=== PATIENT | female | born 1970 | race Hispanic/Latino ===

== ENCOUNTER 2022-12-06 20:49 | Observation (INO) | payer SELFPAY ==
[2022-12-06 21:21] LABS: #Basophils 0.1 thou/uL (0.0-0.2); #Eosinphils 0.2 thou/uL (0.0-0.7); #Lymphocytes 3.2 thou/uL (1.20-3.40); #Monocytes 0.5 thou/uL (0.11-0.59); #Neutrophils 3.5 thou/uL (1.40-6.50); %Basophils 0.8 % (0.0-1.0); %Eosinophils 2.3 % (0.0-10.0); %Lymphocytes 43.4 % (21.0-51.0); %Monocytes 6.1 % (0.0-10.0); %Neutrophils 47.4 % (42.0-75.0); Hemoglobin 10.8 g/dL (12.0-16.0); Mean Corpuscular Volume 84.9 fl (78.0-98.0); Mean Platelet Volume 8.6 fL (7.4-10.4); Platelet Count 303 10x3/uL (130-400); Red Blood Cell (RBC) Count 3.85 mill/uL (4.20-5.40); White Blood Cell (WBC) Count 7.5 10x3/uL (4.8-10.8)
[2022-12-06 21:41] LABS: ALT (SGPT) 10 U/L (8-55); AST (SGOT) 16 U/L (5-34); Albumin 4.4 g/dL (3.5-5.0); Alkaline Phosphatase 126 U/L (40-110); Anion Gap 15 mmol/L (10-20); BUN (Urea Nitrogen) 19 mg/dL (9.8-20.1); Bilirubin, Total 0.3 mg/dL (0.2-1.2); Calc. Creatinine Clearance 0 mL/min (70-130); Calcium 9.3 mg/dL (7.8-10.44); Carbon Dioxide 25 mmol/L (22-29); Chloride 101 mmol/L (98-107); Estimated GFR 56; Globulin 3.8 g/dL (2.4-3.5); Glucose 263 mg/dL (70-105); Potassium 3.8 mmol/L (3.5-5.1); Protein, Total 8.2 g/dL (6.0-8.3); Sodium 137 mmol/L (136-145)
[2022-12-06] MEDS ORDERED: Acetaminophen 500 MG TAB ONE (23:22)
[2022-12-06 23:29] LABS: Bilirubin Negative (Negative); Blood, Urine Negative (Negative); Clarity Clear (Clear); Glucose, Urine (Dipstick) 500 mg/dL (Negative); Ketone, Urine Negative (Negative); Leukocyte Negative Leu/uL (Negative); Nitrite Negative (Negative); Protein, Urine (Dipstick) Negative (Neg-Trace); Urobilinogen Normal mg/dL (Less than 2)
[2022-12-07] MEDS ORDERED: Aspirin Chewable 81 MG TAB ONE (00:26)
[2022-12-07] MEDS ORDERED: Dextrose 5% in Water 1,000 ML IV PRN (00:40)
[2022-12-07] MEDS ORDERED: HumaLOG 300 UNITS/3 ML VIAL SC PRN (00:40)
[2022-12-07] MEDS ORDERED: Dextrose 50% Abboject 50 ML SYRINGE SLOW IVP PRN (00:40)
[2022-12-07] MEDS ORDERED: cloNIDine 0.1 MG TAB PO SCH (00:43)
[2022-12-07] MEDS ORDERED: Amlodipine 10 MG TAB PO SCH (00:45)
[2022-12-07 01:33] LABS: Troponin I Less than 0.010 ng/mL (< 0.028)
[2022-12-07 02:02] VITALS: BMI 29.7
[2022-12-07 04:30] LABS: #Eosinphils 0.1 thou/uL (0.0-0.7); #Lymphocytes 3.2 thou/uL (1.20-3.40); #Monocytes 0.5 thou/uL (0.11-0.59); #Neutrophils 2.9 thou/uL (1.40-6.50); %Basophils 0.7 % (0.0-1.0); %Eosinophils 2.2 % (0.0-10.0); %Monocytes 6.9 % (0.0-10.0); %Neutrophils 43.3 % (42.0-75.0); Hemoglobin 10.1 g/dL (12.0-16.0); Mean Corpuscular HGB CONC 33.1 g/dL (32.0-36.0); Mean Corpuscular Hemoglobin 27.8 pg (27.0-31.0); Mean Platelet Volume 8.2 fL (7.4-10.4); Platelet Count 297 10x3/uL (130-400); Red Blood Cell (RBC) Count 3.64 mill/uL (4.20-5.40); White Blood Cell (WBC) Count 6.8 10x3/uL (4.8-10.8)
[2022-12-07 04:56] LABS: Anion Gap 13 mmol/L (10-20); BUN (Urea Nitrogen) 18 mg/dL (9.8-20.1); Calc. Creatinine Clearance 81 mL/min (70-130); Calcium 9.1 mg/dL (7.8-10.44); Carbon Dioxide 23 mmol/L (22-29); Chloride 103 mmol/L (98-107); Estimated GFR 79; Glucose 215 mg/dL (70-105); Potassium 3.6 mmol/L (3.5-5.1); Sodium 135 mmol/L (136-145)
[2022-12-07 04:57] LABS: Troponin I Less than 0.010 ng/mL (< 0.028)
[2022-12-07] MEDS ORDERED: Lisinopril 20 MG TAB PO SCH (09:00)
[2022-12-07] MEDS ORDERED: ADENOSINE 60 MG/20 ML VIAL ONE (09:15)
[2022-12-07 15:35] VITALS: BP 124/80; TEMP 97.4
[2022-12-07] MEDS ORDERED: Acetaminophen 325 MG TAB PO SCH (16:15)
[2022-12-07] MEDS ORDERED: Rosuvastatin 20 MG TAB PO SCH (21:00)
== END 2022-12-07 18:20 | disposition home or self-care (01) ==
LOC: ERS 20:49 → NEURO 12-07 00:32
PROVIDERS: ADMIT Internal Medicine; ATTEND Internal Medicine
DX: R07.9 Chest pain, unspecified (principal); R20.0 Anesthesia of skin; I16.0 Hypertensive urgency; I10 Essential (primary) hypertension; E11.9 Type 2 diabetes mellitus without complications; I77.810 Thoracic aortic ectasia; Z79.84 Long term (current) use of oral hypoglycemic drugs; Z79.899 Other long term (current) drug therapy; Z20.822 Contact with and (suspected) exposure to COVID-19
CPT/HCPCS: 36415; 36416; 70450; 70551; 71045; 78452; 80048; 80053; 81003; 84484; 85025; 93005; 93017; 96372; A9500; G0378; J0153; J1650; U0003; U0005